=== PATIENT | female | born 1990 | race Caucasian/White ===

== ENCOUNTER 2016-12-07 04:12 | Inpatient (IN) | payer BC ==
[~2016-12-07] VITALS: Ht 165.1 cm; Wt 95.5 kg
[~2016-12-07 04:12] MED LIST: MOTRIN 800800 MG/TAB PO; PERCOCET 325 MG1 TA2 PO; PRENATAL1 TA7 PO; TYLENOL 500MG500 MG PO
[2017-01-21] VITALS (41 sets, daily range): BP systolic 93–128; BP diastolic 50–85; PULSE 55–125; TEMP 97.9–98.6
[2017-01-21] MEDS ORDERED: MELAT3MGTAB PO (02:33)
[2017-01-21 03:35] LABS: BASO # 0.1 (0.0-0.2); BASO % 0.4 % (0.0-2.0); EOS # 0.1 (0.0-0.7); EOS % 0.4 % (0-4.0); GRAN # 9.8 (1.4-6.5); GRAN % 70.9 % (42.2-75.2); HEMATOCRIT 39.4 % (37.0-47.0); HEMOGLOBIN 13.4 g/dl (12.5-16.0); LYMPH % 21.6 % (20.0-51.0); MEAN CELL VOLUME 88 fl (80.0-100.0); MEAN CORPUSCULAR HEMOGLOBIN 30 pg (27.0-31.0); MEAN CORPUSCULAR HGB CONC 34 g/dl (33.0-37.0); MEAN PLATELET VOLUME 12.2 fl (7.4-10.4); MONO # 0.9 (0.1-0.6); MONO % 6.2 % (1.7-9.3); PLATELET COUNT 149 K/mm3 (130-400); RED BLOOD COUNT 4.47 M/mm3 (4.10-5.30); REDCELL DISTRIBUTION WIDTH-CV 14.2 % (11.5-14.5); WHITE BLOOD COUNT 13.8 K/mm3 (4.8-10.8)
[2017-01-22 03:35] VITALS: BP 114/70; PULSE 84; TEMP 97.7
[2017-01-22 07:20] VITALS: BP 101/63; PULSE 89; TEMP 98.4
[2017-01-22] MEDS ORDERED: PERCOCET 325 MG1 TA2 PO (08:58)
[2017-01-22] MEDS ORDERED: IBU800 M1 PO (08:58)
== END 2017-01-22 12:40 | disposition home or self-care (01) | DRG 775 ==
LOC: LDR 01-21 02:12 → OB 01-21 14:00 → LDRO 01-24 04:11 → EDSTATUS 01-24 08:17
PROVIDERS: Student in an Organized Health Care Education/Training Program
PROC: 10E0XZZ Delivery of Products of Conception, External Approach (ICD-10-PCS; principal; 2017-01-21)
DX: O69.81X0 Labor and delivery complicated by cord around neck, without compression, not applicable or unspecified (principal); Z3A.39 39 weeks gestation of pregnancy; Z37.0 Single live birth
CPT/HCPCS: J2590; J7120